=== PATIENT | male | born 1960 | race Caucasian/White ===

== ENCOUNTER → 2016-11-02 | Outpatient (CLI) | payer OTHER ==
--- NOTE | 2016-11-02 14:35 | US ---
Sonography of the Medial Left Forefoot Clinical History: 56-year-old male who was noted have a splinter from a wood floor 8 days ago. The pa tient has attempted to retrieve the splinter. Evaluate for residual fragments. Technique: A linear 17 MHz transducer was used to sonographically evaluate the area of palpable jaspreet rn. Color Doppler was used. Cine clips were acquired. ICD-10 Diagnostic Code: M79.5. Findings: There is some localized edema at the injury site, and there are some echogenic specular re flectors, which limits sonographic evaluation for a tiny wood splinter. There is no convincing persis tent echogenic foreign body. Impression: There is no convincing evidence of a foreign body (although a tiny retained splinter cou ld be potentially obscured). Results were discussed with Dionne Ibanez, who will convey the information to Dr. Sulema Salas.
== END ==
LOC: BMCIMAGING 13:20
PROVIDERS: ATTEND Physician Assistant
DX: M79.5 Residual foreign body in soft tissue (principal)

== ENCOUNTER 2017-06-21 10:59 | Day surgery (SDC) | payer OTHER ==
[~2017-06-21 10:59] MED LIST: ASPIRIN EC 325 MG TAB PO ONE; DIAZEPAM 5 MG TAB PO ONE; NITROGLYCERIN 0.4 MG BTL SL PRN; NS 1,000 ML IV SCH; TEMAZEPAM 15 MG CAP PO PRN; diphenhydrAMINE 25 MG CAP PO ONE
--- NOTE | 2017-06-21 11:15 | CPEKG ---
Heart Rate: 58 RR Interval: 1034 P-R Interval: 160 QRSD Interval: 96 QT Interval: 416 QTC Interval: 409 P Waldron: 49 QRS Waldron: 31 T Wave Waldron: 23 EKG Severity - NORMAL ECG - EKG Impression: SINUS RHYTHM Electronically Signed By: Castillo Jamil 21-Jun-2017 15:14:39
[2017-06-21] MEDS ORDERED: FAMOTIDINE 20 MG TAB ONE (11:23)
[2017-06-21] MEDS ORDERED: DIAZEPAM 5 MG TAB ONE (11:23)
[2017-06-21] MEDS ORDERED: ASPIRIN EC 325 MG TAB PO ONE (11:23)
[2017-06-21] MEDS ORDERED: diphenhydrAMINE 25 MG CAP PO ONE (11:23)
[2017-06-21 11:30] LABS: % IMMATURE GRANULYOCYTES 0.5 % (0.0-1.1); ABSOLUTE IMMATURE GRANULOCYTES 0.04 10^3/uL (0.00-0.10); ADD DIFF? NO; ADD MORPH? NO; ADD SCAN? NO; ATYPICAL LYMPHOCYTE FLAG 0 (0-99); FRAGMENT RBC FLAG 0 (0-99); HEMATOCRIT 45.6 % (40.0-51.0); HEMOGLOBIN 16.7 g/dL (13.7-17.5); LEFT SHIFT FLG 0 (0-99); LIPEMIA HEMOLYSIS FLAG 90 (0-99); MEAN CELL HEMOGLOBIN 31.2 pg (27.9-34.1); MEAN CELL HEMOGLOBIN CONCENTR. 36.6 g/dL (32.4-36.7); MEAN CELL VOLUME 85.1 fL (81.5-99.8); MEAN PLATELET VOLUME 10.1 fL (8.7-11.7); PLATELET CLUMPS FLAG 0 (0-99); PLATELET COUNT 207 10^3/uL (150-400); RED BLOOD CELL COUNT 5.36 10^6/uL (4.40-6.38)
[2017-06-21 11:39] LABS: INR 0.98 (0.83-1.16); PROTIME(PATIENT) 12.9 SEC (12.0-15.0)
[2017-06-21 11:40] LABS: APTT 27.5 SEC (23.0-38.0)
[2017-06-21 11:47] LABS: CALCIUM 10.4 mg/dL (8.5-10.4); CARBON DIOXIDE 25 mEq/l (22-31); CHLORIDE 104 mEq/L (97-110); CHOLESTEROL 232 mg/dL (140-220); CHOLESTEROL/HDL RATIO 5.27 RATIO (1.00-4.97); CREATININE 1.1 mg/dL (0.7-1.3); GLOMERULAR FILTRATION RATE > 60; GLUCOSE 92 mg/dL (70-100); HIGH DENSITY LIPOPROTEIN 44 mg/dL (40-65); LDL/HDL RATIO 3.41 RATIO (1.00-3.64); LOW DENSITY LIPOPROTEIN 150 mg/dL (80-100); MAGNESIUM 2.1 mg/dL (1.6-2.3); NON-HIGH DENSITY LIPOPROTEIN 188 mg/dL (90-129); SODIUM 140 mEq/L (134-144); TRIGLYCERIDE 193 mg/dL (40-150); VERY LOW DENSITY LIPOPROTEINS 38 mg/dL (8-25)
[2017-06-21 11:51] LABS: ANION GAP 11 mEq/L (8-16); POTASSIUM 4.3 mEq/L (3.5-5.2)
[2017-06-21] MEDS ORDERED: LIDOCAINE 1% 300 MG/30 ML SDV ONE (12:28)
[2017-06-21] MEDS ORDERED: MIDAZOLAM 2 MG/2 ML VIAL ONE ×3 (12:28→13:51)
[2017-06-21] MEDS ORDERED: fentaNYL 100 MCG/2 ML INJ ONE ×3 (12:28→13:51)
[2017-06-21] MEDS ORDERED: IOPAMIDOL (ISOVUE-370) 150 ML BTL IV ONE (12:29)
[2017-06-21] MEDS ORDERED: NS 1,000 ML IV ONE (12:41)
--- NOTE | 2017-06-21 12:43 | PDPROPOC ---
Sedation Plan of Care Sedation Plan of Care: vital signs stable, mental status noted, patient educated of risks, benefits, alternatives, patient can tolerate sedation ASA Classification: ASA 3 Mallampati Score: Class 3 332 Rule: 332
--- NOTE | 2017-06-21 12:44 | PDHPUP ---
History & Physical Update H&P update statement: This history and physical update is based on an assessment of the patient which was completed after admission or registration (within 24 hours), but prior to the surgery/procedure. H&P update: H&P reviewed & patient examined, no change in patient's condition since H&P completed
[2017-06-21] MEDS ORDERED: ETOMIDATE 40 MG/20 ML INJ ONE ×2 (13:13→14:24)
[2017-06-21] MEDS ORDERED: ATROPINE SULFATE 1 MG/10 ML SYR IVP PRN (13:47)
[2017-06-21] MEDS ORDERED: ONDANSETRON 4 MG/2 ML VIAL IVP PRN (13:47)
[2017-06-21] MEDS ORDERED: DIAZEPAM 10 MG TAB PO PRN (13:48)
[2017-06-21] MEDS ORDERED: OXYMORPHONE HCL 10 MG PO PRN (13:48)
[2017-06-21] MEDS ORDERED: NON-FORMULARY NEW DRUG (Sumatriptan Succinate [Imitrex] 100 MG) PO PRN (13:48)
--- NOTE | 2017-06-21 13:57 | POSTOPPROG ---
Post Op Note Date of Operation: 06/21/17 Surgeon: Octavio Hale Pre-op Diagnosis: chest pain history of atrial fibrillaiton and mitral valve prolapse/regurg Post-op Diagnosis: chest pain history of atrial fibrillaiton and mitral valve prolapse/regurg Indication: chest pain history of atrial fibrillaiton and mitral valve prolapse/ regurg Procedure: right and left heart cath Findings: non obstructive CAD, MVP with regurg Inf/Abcess present in the surg proc area at time of surgery?: No EBL: Minimal Total fluids administered: 1 LITER NORMAL SALINE Complications: NONE
--- NOTE | 2017-06-21 16:59 | CPIP ---
[f rep st] INVASIVE CARDIAC PROCEDURE DATE OF PROCEDURE: 06/21/2017 PROCEDURE PERFORMED: 1. Right and left heart catheterization. 2. Selective coronary angiography. 3. Left ventriculogram. 4. Angio-Seal arteriotomy repair. APPROACH: This is a right groin approach. COMPLICATIONS: None. INDICATIONS/APPROPRIATE USE CRITERIA: The patient has resting and exertional chest discomfort consi stent with CCS class 4 symptoms of angina, which is occurring in an unstable pattern. The patient h as noticed escalating pattern of chest discomfort, pressure and tightness sometimes with associated shortness of breath. He has not had palpitations, syncope, near syncope. The patient was seen by Danielle Sandoval in the clinic and cardiac catheterization was recommended, after an echocardiogram demonstr ated moderately severe mitral regurgitation with prolapse. The patient has a known history of dysli pidemia, which has been historically severe with total cholesterol as high as 350, with a low HDL le ss than 40 on serial measurements, as well as elevated LDL cholesterol above 200 at times. 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 PROCEDURE IN DETAIL: After informed consent was obtained, n.p.o. status was confirmed, the region o f the right groin was cleaned, prepped and draped in sterile fashion. Approximately 15 cc of 1% lid ocaine were utilized for local anesthesia. A 6-[place] sheath was placed using a micropuncture set a nd modified Seldinger technique. The procedure was repeated with a 5-[place] sheath in the right com mon femoral vein. A 5-[place] flow-directed balloon tipped Phelps Chaka catheter was then used to perfo rm right heart catheterization. The right atrial pressure was measured at 9/8 with a mean of 8. Pu lmonary capillary wedge pressure was a mean of 14 with V waves of 15. PA pressure was 30/13 with a mean pressure of 20. RV pressure was 30 with an end-diastolic pressure of 10. Simultaneous saturat ions were obtained from the aorta, which was noted to have a sat of 98.2. The PA sat was 86, yieldi ng a Ronen cardiac output of 8.9, and a Ronen cardiac index of 4.5, which is likely spuriously elevate d. There was certainly no evidence of pulmonary hypertension or a significant V wave on measurement of the pulmonary capillary wedge pressure, which either implies chronicity of the mitral regurgitat ion and left atrial enlargement and compliance, or possibly that the mitral regurgitation is not as severe as previously predicted. The left main coronary lumen is approximately 6 mm in size and trifurcates into an LAD, ramus and ci rcumflex system. The LAD arises in its usual location, giving rise to 3 important diagonal branches , all of which were free of flow-limiting obstruction. The LAD coursed the anterior apex without fl ow-limiting obstruction, dissection or thrombus. The intermedius vessel is small and less than 2 mm in size. The circumflex vessel was approximately 3.5 mm in size and free of flow-limiting obstruct ion, dissection or thrombus as well. There is SEEMA-3 flow to the entire left coronary system withou t evidence of abnormal flow characteristics or other problems. The right coronary artery is dominan t giving rise to posterior descending as well as a posterolateral ventricular branch. There are lum inal irregularities within the right coronary artery which are consistent with underlying atheroscle rosis. Maximal luminal stenosis is 5%-10%, and no flow-limiting obstruction, dissection or thrombus is identified. The patient underwent left heart catheterization demonstrating mildly elevated left ventricular end- diastolic pressure measured at 14 mmHg. The patient underwent left ventriculogram in the MELTON projec tion, demonstrating depressed left ventricular systolic function which is low normal, with an ejecti on fraction of 50% with distal anterior wall and apical hypokinesis, which is of unclear significanc e given the findings of coronary angiography. There was also evidence of at least 3+ mitral regurgi tation on the basis of the left ventriculogram. This of course was under pressurized injection with associated ventricular ectopy which may increase the severity and appearance of mitral regurgitatio n with left ventriculography. SUMMARY OF FINDINGS: 1. Non flow-limiting coronary disease with the worst luminal regularities in the proximal and mid r ight coronary artery, with a maximal luminal stenosis of approximately 10%. The patient should be t reated with statin therapy to achieve a non-HDL cholesterol of less than 100 mg/dL. There is eviden ce of driving LDL cholesterol all the way to 55 mg/dL as a benchmark for reduction in MACE (major ad verse cardiac events). 2. The patient has at least moderate mitral regurgitation on the basis of prior transthoracic echo performed last Wednesday in our office, as well as on the basis of the left ventriculogram performed today. I think the patient should undergo a FAISAL later today to evaluate the status of the posterio r leaflet of the mitral valve and severity of the mitral regurgitation, as well as to ensure that th e patient does not have a ruptured chordee tendineae, papillary to muscle dysfunction or other clini joie evidence of severe mitral regurgitation would be the best in gold standard test to evaluate valv ular regurgitation in the mitral position, which would of course be a FAISAL. Please see the report of that test which is not yet completed under separate cover. Copy requested to: Primary Care Physician /[id number]/MODL
[2017-06-21 17:37] VITALS: BP 123/71; RESP 20; O2SAT 96
[2017-06-21] MEDS ORDERED: NABUMETONE 500 MG TAB PO SCH (18:00)
[2017-06-21] MEDS ORDERED: NON-FORMULARY NEW DRUG (Omeprazole [Prilosec 40 Mg] 40 MG) PO SCH (21:00)
--- NOTE | 2017-06-24 13:48 | ECHO ---
[id number] + + [address] : : [facility] [address] : : [phone] + Transesophageal Echocardiographic Report + --+ :Name: Yaneth STANFORD Date: 06/21/2017 02:21 PM : : Hospital Admission Number: [id number] Location: VC: :: 1960 Gender: Male : :Age: 57 yrs Race: WH : :Reason For Study: Eval LV Fx : :History: Mitral Regurgitation : + --+ Left Ventricle Left ventricular systolic function is low normal. Mitral Valve Prolapse of the posterior mitral leaflet(s). There is no mitral valve stenosis. There is moderate mitral regurgitation. Tricuspid Valve Normal tricuspid valve. Aortic Valve The aortic valve is normal in structure and function. The aortic valve is trileaflet. There is no aortic stenosis. Mild aortic regurgitation. Pulmonic Valve The pulmonic valve is normal in structure and function. Vessels The aortic root is normal size. Pericardium There is no pericardial effusion. Conclusion Left ventricular systolic function is low normal. Prolapse of the posterior mitral leaflet(s). The aortic valve is normal in structure and function. The aortic valve is trileaflet. Mild aortic regurgitation. There is no pericardial effusion. There is evidence of moderate mitral regurgitation. Repeat echocardiogram in 1-2 years to track the severity of mitral regurgitaiton is recommended, sooner if symptoms warrant. Final Reading Physician: Tyesha Mueller signed on 06/24/2017 01:47 PM Ordering Physician: Octavio Hale Performed By: Octavio Hale MD
== END 2017-06-21 17:40 | disposition home or self-care (01) ==
LOC: FCATH 10:59
PROVIDERS: ATTEND Internal Medicine Cardiovascular Disease
PROC: B2151ZZ Fluoroscopy of Left Heart using Low Osmolar Contrast (ICD-10-PCS; principal; 2017-06-21)
PROC: 4A023N8 Measurement of Cardiac Sampling and Pressure, Bilateral, Percutaneous Approach (ICD-10-PCS; principal; 2017-06-21)
PROC: B2111ZZ Fluoroscopy of Multiple Coronary Arteries using Low Osmolar Contrast (ICD-10-PCS; principal; 2017-06-21)
DX: I25.10 Atherosclerotic heart disease of native coronary artery without angina pectoris (principal); I48.0 Paroxysmal atrial fibrillation; E78.5 Hyperlipidemia, unspecified; I34.0 Nonrheumatic mitral (valve) insufficiency; K21.9 Gastro-esophageal reflux disease without esophagitis
CPT/HCPCS: C1760; J1644; J2250; J3010; Q9967